=== PATIENT | female | born 1950 | race American Indian/Alaskan Native ===

== ENCOUNTER 2019-08-10 13:04 | Observation (INO) | payer MEDICARE ==
--- NOTE | 2019-08-10 14:26 | Emergency Department Report ---
HPI - General Chief Complaint: Weakness Time Seen by Provider: 08/10/19 14:10 - HPI HPI: Room 4 The patient is a 69-year-old female present with a chief complaint of syncope. The supervisor [employer] states that the patient was standing in the bathroom while her hair was being brushed when she suddenly collapsed. The patient was caught by the caregiver prior to falling completely to the ground. The patient was reportedly unresponsive for 20 seconds and then had an episode of vomiting clear emesis. The supervisor [employer] states that she attempted to check the patient's vitals and found her to have a faint pulse, subsequently EMS was called. EMS reported the patient was hypotensive to 70/50 at the home and was given a 500 mL normal saline bolus. In the ED the patient currently denies complaints ED Past Medical Hx - Past Medical History Previous Medical History?: Yes Additional medical history: Mental Retardation - Surgical History Past Surgical History?: No - Family History Family history: no significant - Social History Smoking Status: Never Smoker Substance Use Type: None - Medications Home Medications: Home Medications Medication Instructions Recorded Confirmed Last Taken Type Loperamide [Imodium] 2 mg PO Q2HR PRN #20 capsule 04/07/14 Unknown Rx guaiFENesin/DEXTROMETHORPHAN 1 each PO BID PRN #30 tab.er.12h 04/07/14 Unknown Rx [Mucinex Dm ER 600-30 mg Tablet] levoFLOXacin [Levaquin] 750 mg PO QDAY #7 tablet 04/07/14 Unknown Rx ED Review of Systems ROS: Stated complaint: WEAKNESS Other details as noted in HPI Constitutional: no symptoms reported Eyes: denies: eye pain ENT: denies: throat pain Respiratory: no symptoms reported Cardiovascular: denies: chest pain Endocrine: no symptoms reported Gastrointestinal: denies: abdominal pain Genitourinary: denies: dysuria Musculoskeletal: arthralgia. denies: back pain Neurological: denies: headache Physical Exam - Physical Exam Vital Signs: Vital Signs 08/10/19 08/10/19 13:09 14:07 Temperature 98.4 F Pulse Rate 84 Respiratory 20 Rate Blood Pressure 132/53 [Left] O2 Sat by Pulse 100 100 Oximetry Physical Exam: GENERAL: The patient is a well-nourished female sitting on stretcher not appearing to be in acute distress. [] HEENT: Normocephalic. Atraumatic. Extraocular motions are intact. Patient has moist mucous membranes. NECK: Supple. Trachea midline CHEST/LUNGS: Clear to auscultation. There is no respiratory distress noted. HEART/CARDIOVASCULAR: Regular. There is no tachycardia. There is no gallop rub or murmur. ABDOMEN: Abdomen is soft, nontender. Patient has normal bowel sounds. There is no abdominal distention. SKIN: There is no rash. There is no edema. There is no diaphoresis. NEURO: The patient is awake and alert. The patient is cooperative. The patient has no focal neurologic deficits. The patient has normal speech. Patient moves all extremities. MUSCULOSKELETAL: There is no evidence of acute injury. ED Course Vital Signs 08/10/19 08/10/19 13:09 14:07 Temperature 98.4 F Pulse Rate 84 Respiratory 20 Rate Blood Pressure 132/53 [Left] O2 Sat by Pulse 100 100 Oximetry ED Medical Decision Making - Lab Data Result diagrams: 08/10/19 15:01 08/10/19 15:01 Laboratory Tests 08/10/19 08/10/19 08/10/19 14:35 15:01 15:01 WBC 10.4 RBC 4.00 Hgb 13.4 Hct 39.4 MCV 99 H MCH 34 H MCHC 34 RDW 14.2 Plt Count 188 Lymph % (Auto) 17.6 Cross % (Auto) 3.5 Eos % (Auto) 0.1 Baso % (Auto) 0.2 Lymph # 1.8 Cross # 0.4 Eos # 0.0 Baso # 0.0 Seg Neutrophils % 78.6 H Seg Neutrophils # 8.2 H PT 13.5 INR 1.02 APTT 25.6 Sodium Potassium Chloride Carbon Dioxide Anion Gap BUN Creatinine Estimated GFR BUN/Creatinine Ratio Glucose Calcium Total Bilirubin AST ALT Alkaline Phosphatase Total Creatine Kinase CK-MB (CK-2) CK-MB (CK-2) Rel Index Troponin T NT-Pro-B Natriuret Pep Total Protein Albumin Albumin/Globulin Ratio Lipase Urine Color Yellow Urine Turbidity Clear Urine pH 5.0 Ur Specific Orient 1.013 Urine Protein <15 mg/dl Urine Glucose (UA) Neg Urine Ketones 20 Urine Blood Neg Urine Nitrite Neg Urine Bilirubin Neg Urine Urobilinogen < 2.0 Ur Leukocyte Esterase Neg Urine WBC (Auto) 1.0 Urine RBC (Auto) 1.0 U Epithel Cells (Auto) 1.0 Urine Mucus 1+ 08/10/19 15:01 WBC RBC Hgb Hct MCV MCH MCHC RDW Plt Count Lymph % (Auto) Cross % (Auto) Eos % (Auto) Baso % (Auto) Lymph # Cross # Eos # Baso # Seg Neutrophils % Seg Neutrophils # PT INR APTT Sodium 137 Potassium 4.1 Chloride 103.7 Carbon Dioxide 21 L Anion Gap 16 BUN 12 Creatinine 0.7 Estimated GFR > 60 BUN/Creatinine Ratio 17 Glucose 97 Calcium 9.9 Total Bilirubin 0.30 AST 16 ALT 8 Alkaline Phosphatase 76 Total Creatine Kinase 30 CK-MB (CK-2) < 1.0 CK-MB (CK-2) Rel Index 3.3 Troponin T < 0.010 NT-Pro-B Natriuret Pep 14.24 Total Protein 7.3 Albumin 3.4 L Albumin/Globulin Ratio 0.9 Lipase 38 Urine Color Urine Turbidity Urine pH Ur Specific Orient Urine Protein Urine Glucose (UA) Urine Ketones Urine Blood Urine Nitrite Urine Bilirubin Urine Urobilinogen Ur Leukocyte Esterase Urine WBC (Auto) Urine RBC (Auto) U Epithel Cells (Auto) Urine Mucus - EKG Data -: EKG Interpreted by Oh EKG shows normal: sinus rhythm Rate: normal - EKG Data When compared to previous EKG there are: previous EKG unavailable Interpretation: nonspecific ST-T wave kareem (T wave inversion lead III) - Radiology Data Radiology results: report reviewed (CT head), image reviewed (CT head) Findings [facility] [address] [id number] Cat Scan Report Signed Patient: HEMAL KIRBY MR#: [id number] : 1950 Acct:[id number] Age/Sex: 69 / F ADM Date: 08/10/19 Loc: ED Attending Dr: Ordering Physician: ROBERTO CARLOS CORONADO MD Date of Service: 08/10/19 Procedure(s): CT head/brain wo con Accession Number(s): [id number] cc: ROBERTO CARLOS CORONADO MD CT head/brain wo con INDICATION / CLINICAL INFORMATION: 69 years Female; MAIN: Syncope . TECHNIQUE: Routine CT head without contrast. All CT scans at this location are performed using CT dose reduction for ALARA by means of automated exposure control. COMPARISON: None. FINDINGS: BRAIN / INTRACRANIAL CONTENTS: No acute hemorrhage, mass effect, midline shift, hydrocephalus, or acute, large territorial infarct. Mild cerebral and cerebellar atrophy. Mild degree of hippocampal atrophy suggested bilaterally. There are mild areas of decreased attenuation in the white matter of the cerebral hemispheres, as well as the gangliocapsular regions. These are nonspecific findings and may be related to microangiopathy (hypertension, diabetes, atherosclerosis), given the patient's age. It might be difficult to evaluate for small areas of ischemia without diffusion imaging by MRI. CRANIOCERVICAL JUNCTION: No significant abnormality. ORBITS: No significant abnormality of visualized orbits. SINUSES / MASTOIDS: There is mild mucosal thickening in the ethmoids. ADDITIONAL FINDINGS: Incidental note is made of fibrous union of the anterior and posterior arch of C1 - normal variant. No significant atherosclerotic disease appreciated. IMPRESSION: 1. No focal mass, hemorrhage, hydrocephalus, or acute, large territorial infarct. Signer Name: Alan Manning MD, III Signed: 08/10/2019 3:18 PM Workstation Name: [id number] Transcribed By: HR Dictated By: Alan Manning MD Electronically Authenticated By: Alan Manning MD Signed Date/Time: 08/10/191517 DD/ 14 TD/TT: - Differential Diagnosis Syncope Critical care attestation.: If time is entered above; I have spent that time in minutes in the direct care of this critically ill patient, excluding procedure time. ED Disposition Clinical Impression: Syncope Disposition: 09 OP ADMIT IP TO THIS HOSP Is pt being admited?: Yes Does the pt Need Aspirin: Yes Condition: Fair Instructions: Syncope (ED) Referrals: [facility] MD TRAVON [Primary Care Provider] - 3-5 Days Time of Disposition: 15:58 (Hospitalist paged (Dr Hernandez))
[2019-08-10 15:16] LABS: Bilirubin,Urine NEG (Negative); Blood,Urine NEG (Negative); Color,Urine Yellow (Yellow); Mucus,Urine 1+ /HPF; Protein,Urine <15 mg/dL mg/dL (Negative); Urobilinogen,Urine < 2.0 mg/dL (<2.0)
--- NOTE | 2019-08-10 15:23 | Cat Scan Report ---
CT head/brain wo con INDICATION / CLINICAL INFORMATION: 69 years Female; MAIN: Syncope . TECHNIQUE: Routine CT head without contrast. All CT scans at this location are performed using CT dos e reduction for ALARA by means of automated exposure control. COMPARISON: None. FINDINGS: BRAIN / INTRACRANIAL CONTENTS: No acute hemorrhage, mass effect, midline shift, hydrocephalus, or acu te, large territorial infarct. Mild cerebral and cerebellar atrophy. Mild degree of hippocampal atrophy suggested bilaterally. There are mild areas of decreased attenuation in the white matter of the cerebral hemispheres, as wel l as the gangliocapsular regions. These are nonspecific findings and may be related to microangiopath y (hypertension, diabetes, atherosclerosis), given the patient's age. It might be difficult to evalua te for small areas of ischemia without diffusion imaging by MRI. CRANIOCERVICAL JUNCTION: No significant abnormality. ORBITS: No significant abnormality of visualized orbits. SINUSES / MASTOIDS: There is mild mucosal thickening in the ethmoids. ADDITIONAL FINDINGS: Incidental note is made of fibrous union of the anterior and posterior arch of C 1 - normal variant. No significant atherosclerotic disease appreciated. IMPRESSION: 1. No focal mass, hemorrhage, hydrocephalus, or acute, large territorial infarct. Signer Name: Alan Manning MD, III Signed: 08/10/2019 3:18 PM Workstation Name: [id number]
[2019-08-10 15:34] LABS: Basophils % (Auto) 0.2 % (0.0-1.8); Eosinophils % (Auto) 0.1 % (0.0-4.3); Hematocrit 39.4 % (30.3-42.9); Hemoglobin 13.4 gm/dl (10.1-14.3); Lymphocytes # (Auto) 1.8 K/mm3 (1.2-5.4); Lymphocytes % (Auto) 17.6 % (13.4-35.0); Mean Corpuscular HGB Conc 34 % (30-34); Mean Corpuscular Volume 99 fl (79-97); Monocytes # (Auto) 0.4 K/mm3 (0.0-0.8); Monocytes % (Auto) 3.5 % (0.0-7.3); Platelet Count 188 K/mm3 (140-440); Red Cell Distribution Width 14.2 % (13.2-15.2)
[2019-08-10 15:42] LABS: INR 1.02 (0.87-1.13)
[2019-08-10 15:43] LABS: Partial Thromboplastin Time 25.6 Sec. (24.2-36.6)
[2019-08-10 15:51] LABS: Alanine Aminotransferase 8 units/L (7-56); Albumin 3.4 g/dL (3.9-5); BUN/Creatinine Ratio 17; Blood Urea Nitrogen 12 mg/dL (7-17); Calcium 9.9 mg/dL (8.4-10.2); Hemolysis Index 16
[2019-08-10 15:55] LABS: Creatine Kinase MB < 1.0 ng/mL (0.0-4.0)
[2019-08-10] MEDS ORDERED: ASPIRIN 325 MG TAB PO ONE (15:58)
--- NOTE | 2019-08-10 16:03 | History and Physical Report ---
History of Present Illness Chief complaint: She collapsed History of present illness: 69 YO Female with Developmental Delay presents to ED for evaluation. Patient has developmental delay and is unable to provide detailed history. Patient caregiver is at the bedside during exam and interview and provides detailed his tory. Patient caregiver states that the patient was in her usual state of health and ambulated from her bedroom to the bathroom and was getting her hair brushed when she suddenly collapsed while standing. Patient caregiver acknowledges that the patient was standing upright for several minutes with her legs straight. That the patient subsequently collapsed into her arms and avoided falling to the floor. As per caregiver the patient was unresponsive for approximately 20 seconds and subsequently regained consciousness and was back to her usual state of health. EMS was notified and upon arrival the patient was found to be in distress with a blood pressure of 70/50 and subsequently transported to [facility] for further evaluation and care. Patient seen and evaluated in the emergency department. Lab and imaging studies reviewed. Patient found to have syncope and collapse secondary to volume depletion. Patient treated with IV fluid resuscitation therapy with improvement in symptoms. Patient placed in observation status and admitted to [facility] unit for further you observation and care. No prior admission for review. No medication listed at time of admission for reconciliation. Advance care planning conducted in the emergency department. Past History Past Medical History: other (See HPI) Past Surgical History: No surgical history, Other (Reviewed) Social history: single, lives with family. denies: smoking, alcohol abuse, prescription drug abuse Family history: no significant family history, other (Reviewed) Medications and Allergies Allergies Allergy/AdvReac Type Severity Reaction Status Date / Time No Known Allergies Allergy Verified 08/10/19 14:07 Home Medications Medication Instructions Recorded Confirmed Last Taken Type Loperamide [Imodium] 2 mg PO Q2HR PRN #20 capsule 04/07/14 Unknown Rx guaiFENesin/DEXTROMETHORPHAN 1 each PO BID PRN #30 tab.er.12h 04/07/14 Unknown Rx [Mucinex Dm ER 600-30 mg Tablet] levoFLOXacin [Levaquin] 750 mg PO QDAY #7 tablet 04/07/14 Unknown Rx Review of Systems ROS unobtainable: due to mental status Exam - Constitutional Vitals: Temp Pulse Resp BP Pulse Ox 98.4 F 101 H 14 132/60 100 08/10/19 13:09 08/10/19 15:52 08/10/19 15:52 08/10/19 15:52 08/10/19 15:52 General appearance: Present: mild distress, well-nourished - EENT Eyes: Present: PERRL ENT: hearing intact, clear oral mucosa - Neck Neck: Present: supple, normal ROM - Respiratory Respiratory effort: normal Respiratory: bilateral: CTA - Cardiovascular Heart Sounds: Present: S1 & S2. Absent: rub, click - Extremities Extremities: pulses symmetrical, No edema Peripheral Pulses: within normal limits - Abdominal General gastrointestinal: Present: soft, non-tender, non-distended, normal bowel sounds Female genitourinary: Present: normal - Integumentary Integumentary: Present: dry, clammy, decreased turgor - Musculoskeletal Musculoskeletal: gait normal, strength equal bilaterally - Psychiatric Psychiatric: appropriate mood/affect, no intact judgment & insight, no memory intact, cooperative - Neurologic Neurologic: CNII-XII intact, moves all extremities Results - Labs CBC & Chem 7: 08/10/19 15:01 08/10/19 15:01 Labs: Abnormal lab results 08/10/19 08/10/19 Range/Units 15:01 15:01 MCV 99 H (79-97) fl MCH 34 H (28-32) pg Seg Neutrophils % 78.6 H (40.0-70.0) % Seg Neutrophils # 8.2 H (1.8-7.7) K/mm3 Carbon Dioxide 21 L (22-30) mmol/L Albumin 3.4 L (3.9-5) g/dL Assessment and Plan - Patient Problems (1) Volume depletion Current Visit: Yes Status: Acute Plan to address problem: IV fluid resuscitation therapy, supportive care, monitor urine output every shift, BMP, repeat BMP in a.m. (2) Syncope Current Visit: Yes Status: Acute Qualifiers: Encounter type: initial encounter Plan to address problem: Supportive care, neuro check, seizure precaution, fall precautions, CT head. (3) Advance care planning Current Visit: Yes Status: Acute Plan to address problem: Patient is full code, disease education conducted, patient caregiver acknowledges understanding and agreement with care plan. +30 minutes. (4) DVT prophylaxis Current Visit: Yes Status: Acute Plan to address problem: SCD to bilateral lower extremities while in bed, patient is ambulatory
[2019-08-10] MEDS ORDERED: ONDANSETRON 4 MG/2 ML INJ IV PRN (16:04)
[2019-08-10] MEDS ORDERED: ACETAMINOPHEN 325 MG TAB PO PRN (16:04)
[2019-08-10] MEDS ORDERED: SODIUM CHLORIDE 0.9% 1000 ML 1,000 ML IV SCH (16:15)
[2019-08-10 16:58] VITALS: BP 127/48
[2019-08-10] MEDS ORDERED: ASPIRIN 325 MG TAB ONE (17:13)
== END 2019-08-10 19:02 | disposition left against medical advice (07) ==
LOC: ED 13:04 → 4A 16:04
PROVIDERS: ADMIT Internal Medicine; ATTEND Internal Medicine
DX: E86.9 Volume depletion, unspecified (principal); R55 Syncope and collapse; F79 Unspecified intellectual disabilities
CPT/HCPCS: 36415; 70450; 80053; 81001; 82550; 82553; 83690; 83880; 84484; 85025; 85610; 85730; 93005; 99285; G0378

== ENCOUNTER 2019-11-08 23:24 | Emergency (ER) | payer MEDICAID ==
[2019-11-09 00:51] LABS: Basophils % (Auto) 0.1 % (0.0-1.8); Hematocrit 35.5 % (30.3-42.9); Hemoglobin 11.7 gm/dl (10.1-14.3); Lymphocytes # (Auto) 1.3 K/mm3 (1.2-5.4); Lymphocytes % (Auto) 20.8 % (13.4-35.0); Mean Corpuscular HGB Conc 33 % (30-34); Mean Corpuscular Volume 99 fl (79-97); Monocytes # (Auto) 0.3 K/mm3 (0.0-0.8); Monocytes % (Auto) 5.2 % (0.0-7.3); Platelet Count 160 K/mm3 (140-440); Red Blood Count 3.59 M/mm3 (3.65-5.03); Red Cell Distribution Width 13.5 % (13.2-15.2)
[2019-11-09 01:06] LABS: BUN/Creatinine Ratio 24; Blood Urea Nitrogen 17 mg/dL (7-17); Calcium 9.4 mg/dL (8.4-10.2); Hemolysis Index 8
[2019-11-09 01:51] LABS: Bilirubin,Urine NEG (Negative); Blood,Urine NEG (Negative); Color,Urine Yellow (Yellow); Mucus,Urine FEW /HPF
[2019-11-09 05:23] VITALS: BP 103/43
== END 2019-11-09 05:45 | disposition left against medical advice (07) ==
LOC: ED 23:24
DX: R50.9 Fever, unspecified (principal); Z53.21 Procedure and treatment not carried out due to patient leaving prior to being seen by health care provider
CPT/HCPCS: 36415; 80048; 81001; 85025